=== PATIENT | male | born 1945 | race Caucasian/White ===

== ENCOUNTER 2024-10-08 11:20 | Emergency (ER) | payer MEDICARE, SELFPAY ==
--- NOTE | ~2024-10-08 | XR_ITS ---
EXAMINATION: XR chest 2V DATE: 10/08/2024 11:48 INDICATION: Cough and shortness of breath TECHNIQUE: PA and lateral views of the chest were obtained. COMPARISON: None FINDINGS: The lungs are clear with no focal airspace opacities, pulmonary edema, pleural effusion or pneumothor ax. The cardiomediastinal silhouette is normal. Mild thoracic spondylosis with chronic appearing mini mal anterior wedging at a few mid and lower thoracic vertebral bodies. IMPRESSION: 1. No acute cardiopulmonary disease. Reviewed, dictated and finalized at location A. N GATHERER
--- NOTE | 2024-10-08 11:23 | ED.URI ---
HPI - URI/Sore Throat General Chief Complaint: Upper Respiratory Infection Stated Complaint: Chest congestion Time Seen by Provider: 10/08/24 11:23 Source: patient Mode of arrival: ambulatory Limitations: no limitations History of Present Illness HPI Narrative: Alyssa is a 78-year-old male patient presenting to the clinic today with complaints of chest congestion, shortness breath, nonproductive cough x6 days. He states that he has had a low-grade temperature of 99.6?. Denies any chest pain but feels little heavy in the chest. MD elicited complaint: cough and other (Chest congestion) Related Data Home Medications ?Medication ?Instructions ?Recorded ?Confirmed ?Last Taken ?Type allopurinol 300 mg tablet 300 mg PO DAILY 10/08/24 10/08/24 Unknown History amlodipine 5 mg-benazepril 10 mg 1 cap PO DAILY 10/08/24 10/08/24 Unknown History capsule calcitriol 0.25 mcg capsule 0.25 mcg PO DAILY 10/08/24 10/08/24 Unknown History levothyroxine 150 mcg tablet 150 mcg PO DAILY 10/08/24 10/08/24 Unknown History (Synthroid) Allergies Allergy/AdvReac Type Severity Reaction Status Date / Time No Known Allergies Allergy Verified 10/08/24 11:42 Review of Systems Review of Systems: Pertinent positives per HPI. Patient denies any fever, chills, rash, headache, visual changes, dizziness, chest pain, palpitations, nausea, vomiting, diarrhea, constipation, abdominal pain, or any urinary issues. PMFSH Comments At the time of my signature, I reviewed and agree with the nursing past medical, surgical, social, and family history. There is no relevant family history pertinent to the patient complaint. Exam Narrative: General: Well-developed, well nourished, in no apparent distress Head: Normocephalic, atraumatic Eyes: Pupils equally round and reactive to light bilaterally, EOM intact, sclera and conjunctive clear, no discharge, lids normal Ears: TMs intact and clear, ear canals clear, no drainage, grossly hearing normal. Nose: Nares patent, clear nasal discharge, no inflammation, no sinus tenderness. Mouth: Oral pharynx without lesions or masses, good dentition, MMM. Postnasal drip Neck: Supple, trachea midline, no enlargement of anterior or posterior cervical nodes, no thyroid masses or goiter palpable. Cardio: Regular rate and rhythm, s1 and s2 normal, no murmur appreciated. Resp: Expiratory rhonchi throughout lung colon, no rales, wheezing or rubs Course Course Emergency Course: Portions of this record may have been created with voice recognition software. Level of Care: Express Care Visit Vital Signs Vital signs: Vital signs reviewed MDM - URI/Sore Throat MDM Narrative Medical decision making narrative: At the time of visit patient is resting comfortably on the exam table. Patient appears to be nontoxic. Diagnostics: Chest x-ray was performed and is negative for any acute cardiopulmonary process. Plan: I suspect patient has bronchitis. Prescription for prednisone, albuterol inhaler, and azithromycin was sent to the pharmacy. Supportive measures were discussed with the patient and they voiced understanding discharge instructions and agrees to treatment plan. Return precautions reviewed Differential Diagnosis Differential diagnosis: Likely upper respiratory infection, otitis media, sinusitis, viral infection, bronchitis, influenza, pharyngitis and other (COVID) Imaging Data Radiologist's impression: ITS Impressions Chest X-Ray 10/08/24 12:00 IMPRESSION: 1. No acute cardiopulmonary disease. Discharge Plan Discharge Clinical Impression: Bronchitis Patient Disposition: Home, Self-Care Condition: Stable Instructions: Antibiotic Form, Acute Bronchitis (ED) Additional Instructions: Chest x-rays negative for any sign of pneumonia. Take prescription medications only as prescribed-albuterol inhaler, prednisone, and azithromycin Increase fluids and stay well hydrated Tylenol/motrin for pain/fever Flonase and OTC antihistamines as directed Vicks vapor rub to open sinuses Sinus rinses for congestion Cepacol spray, cough drops, throat lozenges, warm tea with honey/lemon, gargle salt water to soothe throat BRAT diet for diarrhea Clear liquids x 24 hours then advance as tolerated for nausea/vomiting Go to the ED if you develop a worsening in your condition- high fever not controlled by Tylenol or Motrin, dehydration, weakness, lethargy, shortness of breath, or chest pain. Follow up with your PCP in 3-5 days if symptoms persist. Patient Language: Bulgarian Prescriptions: New azithromycin 250 mg tablet See Rx Instructions .ROUTE .COMPLEX Qty: 6 0RF Rx Instructions: For 250 mg dose pack: take 500 mg today (day 1), then 250 mg for 4 days (days 2-5) prednisone 20 mg tablet 40 mg PO DAILY 5 Days Qty: 10 0RF albuterol sulfate 90 mcg/actuation HFA aerosol inhaler 2 puff inhalation Q4-6H PRN (Reason: shortness of breath or wheezing) 30 Days Qty: 8.5 0RF No Action allopurinol 300 mg tablet 300 mg PO DAILY amlodipine-benazepril 5-10 mg capsule 1 cap PO DAILY calcitriol 0.25 mcg capsule 0.25 mcg PO DAILY levothyroxine [Synthroid] 150 mcg tablet 150 mcg PO DAILY Follow-up/Referrals: UNKNOWN,DOCTOR [Non-Staff] - Time of Disposition: 12:04 Quality NIHSS Nursing Documentation ED NIHSS nursing documentation: reviewed/agree
[2024-10-08 11:36] VITALS: BP 136/68; PULSE 84; RESP 16; TEMP 36.6; O2SAT 96
--- OUTSIDE RECORDS SUMMARY | 2024-10-15 06:36 | XMS_ITS | Continuity of Care Document ---
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 Name Role Phone Bennie Jackson Primary Care Physician Encounter [facility] Financial Number [id number] Date(s): 02/02/23 - 02/02/23 [facility] [address] [facility] [address] [place], [place] [id number] Discharge Disposition: Home or Self Care Allergies, Adverse Reactions, Alerts Substance Reaction Severity Status Adhesive Tape Blister, NOS Mild Active Assessment and Plan Future Appointments Appointment Date:12/28/2023 11:00:00 AM Scheduled Provider:Bennie Jackson MD [facility] Appointment Type:CIMR CPE Complete Physical Exam Immunizations Given and Recorded Vaccine Date Status Refusal Reason SARS-CoV-2 (COVID-19) mRNA BNT-162b2 vax 07/14/21 Recorded SARS-CoV-2 (COVID-19) mRNA BNT-162b2 vax 12/30/20 Recorded SARS-CoV-2 (COVID-19) mRNA BNT-162b2 vax 12/02/20 Recorded influenza virus vaccine, inactivated 07/08/21 Estuardo rded influenza virus vaccine, inactivated 07/08/20 Estuardo rded influenza virus vaccine, inactivated 06/13/19 Estuardo rded influenza virus vaccine, inactivated 06/19/18 Estuardo rded influenza virus vaccine, inactivated 08/06/15 Estuardo rded influenza virus vaccine, inactivated 08/29/13 Estuardo rded zoster vaccine, inactivated 09/29/19 Recorded Tetanus, Diphtheria, acel Pertussis Tdap 06/19/18 Recorded pneumococcal 13-valent vaccine 1 04/11/16 Given pneumococcal 13-valent vaccine 10/08/15 Recorded pneumococcal 23-valent vaccine 08/29/13 Recorded pneumococcal 23-valent vaccine 08/06/13 Recorded 1Result Comment: Note: amount administered:0.5 mL administered units:0.5 mL substance lot:[id number] date/time:[id number] 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 id: Medications allopurinol 300 mg oral tablet 1 tablet(s), Oral, daily, 90 tablet(s), 0, Route to Pharmacy Electronically, [id number], NCP_[id number], 180, cm, 06/21/2022 0819, Height, 87, kg, 06/21/2022 1015, Weight Start Date: 12/25/22 Status: Ordered amLODIPine-benazepril 5 mg-10 mg oral capsule 1 capsule(s), Oral, daily, 90 capsule(s), 1, 90, Route to Pharmacy Electronically, [facility], NCPDP_[id number], 180, cm, 06/21/2022 0819, Height, 87, kg, 06/21/2022 1015, Weight Start Date: 10/23/22 Status: Ordered baclofen 10 mg oral tablet 10 mg, 1 tablet(s), Oral, bid, PRN, 20 tablet(s), 0, 0, muscle spasm, Route to Pharmacy Electronically, [facility], [id number] Start Date: 11/05/20 Stop Date: 11/15/20 Status: Ordered calcitriol 0.25 mcg oral capsule See Instructions, # 180 capsule(s), Refill #: 3 Total Refills: 3, TAKE 1 CAPSULE TWICE DAILY, [facility] Start Date: 04/26/20 Status: Ordered dorzolamide-timolol ophthalmic 1 drop, Both eyes, daily, 0 Start Date: 01/13/19 Status: Ordered Flonase Nasal [place] 1 spray(s), Nasal, daily, PRN, 1 spray(s), [place], 0, allergy symptoms Start Date: 02/25/18 Status: Ordered levothyroxine 150 mcg (0.15 mg) oral tablet 150 mcg, 1 tablet(s), Oral, daily before breakfast, 90 tablet(s), Tablet(s), 1, 1, Route to Pharmacy Electronically, [facility], [id number] Start Date: 09/08/19 Stop Date: 03/06/20 Status: Ordered meloxicam 15 mg oral tablet 15 mg, 1 tablet(s), Oral, daily, 30 tablet(s), Tablet(s), 5, 5, Route to Pharmacy Electronically, [facility], [id number], 180, cm, 12/26/2022 1009, Height, 83, kg, 1009, Weight Start Date: 12/26/22 Status: Ordered mometasone 0.1% topical lotion 1 Applic, Topical, daily, 60 mL, Lotion, 0, 0, Route to Pharmacy Electronically, [facility], [id number], 180, cm, 12/26/2022 1009, Height, 83, kg, 12/26/2022 1009, Weight Start Date: 02/02/23 Status: Ordered Multivitamin oral tablet 1 tablet(s), Oral, daily, 30 tablet(s), Tablet(s), 0 Start Date: 12/20/16 Status: Ordered OsCal 1 tablet(s), Oral, bid with meals, 60 tablet(s), Tablet(s), 0 Start Date: 04/29/19 Status: Ordered sildenafil 100 mg oral tablet 100 mg, 1 tablet(s), Oral, daily, PRN, 30 tablet(s), Tablet(s), 1, 1, as needed for sexual actvity,Route to Pharmacy Electronically, [facility], [id number] Start Date: 11/11/19 Stop Date: 05/09/20 Status: Ordered Problem List Condition Confirmation Course Effective Dates Status Health Status Informant Pain in left ankle and joints of left foot M25.572 Confirmed Active Arthritis M19.90 Confirmed Active Inguinal hernia, bilateral 1 Confirmed Active Dupuytren's contracture Confirmed Active Essential hypertension I10 Confirmed Active Pain in left foot M79.672 Confirmed Active Gastroesophageal reflux disease without esophagitis K21.9 Confirmed Active History of positive PPD Confirmed Active History of gout Confirmed Active History of thyroid cancer Confirmed Active Hypocalcemia Confirmed Active Hypoparathyroidism, unspecified hypoparathyroidism type E20.9 Confirmed Active Macular hole Confirmed Active Pain of left calf M79.662 Confirmed Active Prostate cancer screening Z12.5 Confirmed Active Annual physical exam Z00.00 Confirmed Active Pernicious anemia D51.0 Confirmed Active Peripheral polyneuropathy G62.9 Confirmed Active Postoperative hypothyroidism Confirmed Active Psoriasis L40.9 2 Confirmed Active Pure hypercholesterolemia E78.00 Confirmed Active Right inguinal hernia K40.90 Confirmed Active Seasonal allergies Confirmed Active Skin lesion L98.9 Confirmed Active Tinea corporis Confirmed Active Tobacco abuse, 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 Substance Abuse Never drug user Smoking Status Former smoker;Never; Tobacco Cessation Counseling Requested N/A; Stopped at age: 44; entered on: 12/26/22 Sex Note * Event Display: ROI_Correspondence * Event Display: Patient Provided Clipboard Authored Date: [id number] Annual Wellness Visit Annual Wellness VisitOriginating Source: PATIENTOriginating Author: DEREK SAUCEDOClaveboard Submission Date: November 02, 2020 9:01:56 AM -06:00 DEREK SAUCEDO : 1945 Sex: Male MRN(s): [id number] Annual Wellness Visit Question Response Have you fallen in the last 3 months? No Have you ever experienced dizziness or vertigo? No Have you ever wet or soiled yourself on the way to the bathroom? No Have throw rugs been removed or fastened down? Yes Are non-slip mats in all bathtubs and showers? Yes Do all stairways have a railing or banister? Yes Are sidewalks/outdoor steps AND doorways, halls, and indoor stairs clear of tools, toys, and other articles? Yes Are all electrical cords in working order, easily seen, and not run under rugs/carpets or wrapped around nails? Yes Are emergency numbers kept by the phone, fridge, or wallet and regularly updated? Yes Are all household members aware of the dangers of smoking, especially in bed? Yes Are working smoke alarm(s) available for use? Yes Are working fire extinguishers available for use? Yes Do all household members know how to use them? Yes If you have firearms, are firearms stored unloaded and securely locked? Yes Are there hazards in your house that might hurt you? No Are you worried you might fall? No Do you use a cane or walker? No Do you need someone to help you get up in the morning? No Because of any health problems, do you need the help of another person with your personal care needs such as eating, bathing, dressing, or getting around the house? No Do you have trouble consistently taking or remembering to take all of your medications as prescribed? I always take them as prescribed Can you get to places out of walking distance without help? (For example, can you travel alone on buses or taxis, or drive your own car?) Yes Can you go shopping for groceries or clothes without someone's help? Yes Can you prepare your own meals? Yes Can you do your housework without help? Yes Can you handle your own money without help? Yes Can you keep track of your own medications without help? Yes How have things been going for you during the past four weeks? Very well; could hardly be better During the past four weeks, how would you rate your health in general? Very Good During the past four weeks, was someone available to help you if you needed and wanted help? Yes, as much as I wanted During the past four weeks, has your physical and emotional health limited your social activities with family friends, neighbors, or groups? Not at all In the past 4 weeks, have you been experiencing any sexual issues you would like to discuss? Never In the past 4 weeks, have you had any any trouble chewing, swallowing, or a poor appetite? Never Can you use the telephone without assistance? Yes How confident are you that you can control and manage most of your health problems? Very confident Are you having difficulties driving your car? No Do you always fasten your seat belt when you are in a car? Always Over the past 2 weeks, how often have you felt down, depressed or hopeless? Not at all Over the past 2 weeks, how often have you had little interest or pleasure in doing things? Not at all * Event Display: ROI_Correspondence Authored Date: * Event Display: ROI_Correspondence Authored Date: * Event Display: Patient Provided Clipboard Authored Date: Annual Wellness Visit Annual Wellness VisitOriginating Source: PATIENTOriginating Author: DEREK SAUCEDOClipboard Submission Date: October 28, 2019 10:25:35 AM DEREK MANRIQUEZ : 1945 Sex: Male MRN(s): [id number] Annual Wellness Visit Question Response Have you fallen in the last 3 months? No Have you ever experienced dizziness or vertigo? No Have you ever wet or soiled yourself on the way to the bathroom? Have throw rugs been removed or fastened down? Yes Are non-slip mats in all bathtubs and showers? Yes Do all stairways have a railing or banister? Yes Are sidewalks/outdoor steps AND doorways, halls, and indoor stairs clear of tools, toys, and other articles? Yes Are all electrical cords in working order, easily seen, and not run under rugs/carpets or wrapped around nails? Yes Are emergency numbers kept by the phone, fridge, or wallet and regularly updated? Yes Are all household members aware of the dangers of smoking, especially in bed? Yes Are working smoke alarm(s) available for use? Yes Are working fire extinguishers available for use? Yes Do all household members know how to use them? Yes If you have firearms, are firearms stored unloaded and securely locked? Yes Are there hazards in your house that might hurt you? No Are you worried you might fall? No Do you use a cane or walker? No Do you need someone to help you get up in the morning? No Because of any health problems, do you need the help of another person with your personal care needs such as eating, bathing, dressing, or getting around the house? No Do you have trouble consistently taking or remembering to take all of your medications as prescribed? I always take them as prescribed Can you get to places out of walking distance without help? (For example, can you travel alone on buses or taxis, or drive your own car?) Yes Can you go shopping for groceries or clothes without someone's help? Yes Can you prepare your own meals? Yes Can you do your housework without help? Yes Can you handle your own money without help? Yes Can you keep track of your own medications without help? Yes How have things been going for you during the past four weeks? Very well During the past four weeks, how would you rate your health in general? Excellent During the past four weeks, was someone available to help you if you needed and wanted help? Yes, as much as I wanted During the past four weeks, has your physical and emotional health limited your social activities with family friends, neighbors, or groups? Not at all In the past 4 weeks, have you been experiencing any sexual issues you would like to discuss? Never In the past 4 weeks, have you had any any trouble chewing, swallowing, or a poor appetite? Never Can you use the telephone without assistance? Yes How confident are you that you can control and manage most of your health problems? Very confident Are you having difficulties driving your car? No Do you always fasten your seat belt when you are in a car? Always Over the past 2 weeks, how often have you felt down, depressed or hopeless? Not at all Over the past 2 weeks, how often have you had little interest or pleasure in doing things? Not at all * Event Display: Patient Provided Clipboard Authored Date: [id number] Annual Wellness Visit Annual Wellness VisitOriginating Source: PATIENTOriginating Author: DEREK SAUCEDOClipboard Submission Date: April 25, 2019 11:21:51 AM CDDEREK QUINTANILLA : 1945 Sex: Male MRN(s): [id number] Annual Wellness Visit Question Response Have you fallen in the last 3 months? No Have you ever experienced dizziness or vertigo? No Have you ever wet or soiled yourself on the way to the bathroom? No Have throw rugs been removed or fastened down? Yes Are non-slip mats in all bathtubs and showers? Yes Do all stairways have a railing or banister? Yes Are sidewalks/outdoor steps AND doorways, halls, and indoor stairs clear of tools, toys, and other articles? Yes Are all electrical cords in working order, easily seen, and not run under rugs/carpets or wrapped around nails? Yes Are emergency numbers kept by the phone, fridge, or wallet and regularly updated? Yes Are all household members aware of the dangers of smoking, especially in bed? Yes Are working smoke alarm(s) available for use? Yes Are working fire extinguishers available for use? Yes Do all household members know how to use them? Yes If you have firearms, are firearms stored unloaded and securely locked? Yes Are there hazards in your house that might hurt you? No Are you worried you might fall? No Do you use a cane or walker? No Do you need someone to help you get up in the morning? No Because of any health problems, do you need the help of another person with your personal care needs such as eating, bathing, dressing, or getting around the house? No Do you have trouble consistently taking or remembering to take all of your medications as prescribed? I always take them as prescribed Can you get to places out of walking distance without help? (For example, can you travel alone on buses or taxis, or drive your own car?) Yes Can you go shopping for groceries or clothes without someone's help? Yes Can you prepare your own meals? Yes Can you do your housework without help? Yes Can you handle your own money without help? Yes Can you keep track of your own medications without help? Yes How have things been going for you during the past four weeks? Pretty well During the past four weeks, how would you rate your health in general? Excellent During the past four weeks, was someone available to help you if you needed and wanted help? Yes, as much as I wanted During the past four weeks, has your physical and emotional health limited your social activities with family friends, neighbors, or groups? Not at all In the past 4 weeks, have you been experiencing any sexual issues you would like to discuss? Never In the past 4 weeks, have you had any any trouble chewing, swallowing, or a poor appetite? Never Can you use the telephone without assistance? Yes How confident are you that you can control and manage most of your health problems? Very confident Are you having difficulties driving your car? No Do you always fasten your seat belt when you are in a car? Always Over the past 2 weeks, how often have you felt down, depressed or hopeless? Not at all Over the past 2 weeks, how often have you had little interest or pleasure in doing things? Not at all * HPF, Image_Migration: VERIFY, PERFORM Event Display: ROI_Correspondence Authored Date: Patient Care team information Care Team Personnel Name: Bennie Jackson MD Position: Physician - Internal Medicine Member Role: Primary Care Physician Address: Address: [address] [place] [address] Name: Keith Barros POPULATION HEALTH COORD Position: Population Health Coordinator Member Role: Population Health Coordinator Name: Mariela Veloz Seed Buyer/English As A Second Language Instructor Position: Population Health Coordinator Member Role: Population Health Coordinator Name: Ambreen Najera ANP Position: AMB PRODUCTION SUPPORT ENGINEER/PA Member Role: Nurse Practitioner Address: Address: [facility] [address] [place] [address] Name: Osorio Wilson ANP Position: AMB PRODUCTION SUPPORT ENGINEER/PA Member Role: Nurse Practitioner Address: Address: [address] [place] [address] Care Team Related Persons Name: MARILU SAUCEDO Address: home [address] [place] [phone] [facility]
--- OUTSIDE RECORDS SUMMARY | 2024-10-15 06:36 | XMS_ITS | Patient Health Record ---
Author Organization [facility] Address 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 Role Phone Renetta REGALADO, Bennie Primary Care Provider Unavail able Yehuda Benítez Unavailable [phone] Reason For Referral No Information Problems Problem Type SNOMED Code ICD Code Onset Dates Problem Status W/U Status Risk Notes Problem [id number] Personal history of colonic polyps (Z86.010) Active confirmed Plan Of Treatment No Information Insurance Providers Payer Name Payer Address Payer Phone Subscriber Number Group Number Insured Name Patient Relationship to Insured Coverage Start Date Coverage End Date Medicare E2 [address] [address] [place] [address] [id number] Spenser Shah Self - patient is the insured [employer] Medicare Supplement [address] [place] [phone] [id number] Plan G Spenser Shah Self - patient is the insured
--- OUTSIDE RECORDS SUMMARY | 2024-10-15 06:36 | XMS_ITS | Continuity of Care Document ---
Author Organization [facility] [address] Address [address] [facility] [address], [place] [id number] Care Team Providers Care Personal Security Specialist Name Role Phone Bennie Jackson Primary Care Physician Encounter [facility] Financial Number [id number] Date(s): 12/28/23 - 12/28/23 [facility] [address] [facility] [address], [place] [id number] Encounter Diagnosis Essential hypertension I10(Discharge Diagnosis) - 12/28/23 History of gout(Discharge Diagnosis) - 12/28/23 History of thyroid cancer(Discharge Diagnosis) - 12/28/23 Hypoparathyroidism, unspecified hypoparathyroidism type E20.9(Discharge Diagnosis) - 12/28/23 Pernicious anemia D51.0(Discharge Diagnosis) - 12/28/23 Prostate cancer screening Z12.5(Discharge Diagnosis) - 12/28/23 Pure hypercholesterolemia E78.00(Discharge Diagnosis) - 12/28/23 Tobacco abuse, 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(Discharge Diagnosis) - 12/28/23 Annual physical exam Z00.00(Discharge Diagnosis) - 12/28/23 Discharge Disposition: Home or Self Care Attending Physician: Bennie Jackson MD Allergies, Adverse Reactions, Alerts Substance Reaction Severity Status Adhesive Tape Blister, NOS Mild Active Assessment and Plan Future Appointments Appointment Date:12/29/2024 11:00:00 AM Scheduled Provider:Bennie Jackson MD Location:[facility] Appointment Type:CIMR CPE Complete Physical Exam [...] vaccine, inactivated 08/29/13 Estuardo rded zoster vaccine, recombinant 09/29/19 Recorded Tetanus, Diphtheria, acel Pertussis Tdap 06/19/18 Recorded pneumococcal 13-valent vaccine 1 04/11/16 Given pneumococcal 13-valent vaccine 10/08/15 Recorded pneumococcal 23-valent vaccine 08/29/13 Recorded pneumococcal 23-valent vaccine 08/06/13 Recorded 1Result Comment: Note: amount administered:0.5 mL administered units:0.5 mL substance lot:[id number] date/time:[id number] fly setter:GameOn refusal id: Medications allopurinol 300 mg oral tablet 1 tablet(s), Oral, daily, 90 tablet(s), 0, 0, Route to Pharmacy Electronically, [facility], [id number], 180, cm, 12/26/22 10:09:00 CDT, Height, 83, kg, 12/26/22 10:09:00 CDT, Weight Start Date: 12/24/23 Status: Ordered amLODIPine-benazepril 5 mg-10 mg oral capsule 1 capsule(s), Oral, daily, 90 capsule(s), 1, 1, Route to Pharmacy Electronically, [facility], [id number], 180, cm, 12/26/22 10:09:00 CDT, Height, 83, kg, 12/26/22 10:09:00 CDT, Weight Start Date: 10/30/23 Stop Date: 04/27/24 Status: Ordered baclofen 10 mg oral tablet 10 mg, 1 tablet(s), Oral, bid, PRN, 20 tablet(s), 0, 0, muscle spasm, Route to Pharmacy Electronically, [facility], [id number] Start Date: 11/05/20 Stop Date: 11/15/20 Status: Ordered calcitriol 0.25 mcg oral capsule See Instructions, # 180 capsule(s), Refill #: 3 Total Refills: 3, TAKE 1 CAPSULE TWICE DAILY, [facility] Start Date: 04/26/20 Status: Ordered Citracal 250 mg + D 1 tablet(s), Oral, tid with meals, 90 tablet(s), Tablet(s), 0 Start Date: 12/28/23 Status: Ordered clotrimazole 1% topical cream See Instructions, 15 gm, 1, APPLY CREAM TOPICALLY TWICE DAILY, 180, cm, 12/26/22 10:09:00 CDT, Height, 83, kg, 12/26/22 10:09:00 CDT, Weight Start Date: 10/30/23 Status: Ordered dorzolamide-timolol ophthalmic 1 drop, Both eyes, daily, 0 Start Date: 01/13/19 Status: Ordered Flonase Nasal [place] 1 spray(s), Nasal, daily, PRN, 1 spray(s), [place], 0, allergy symptoms Start Date: 02/25/18 Status: Ordered levothyroxine 150 mcg (0.15 mg) oral tablet 150 mcg, 1 tablet(s), Oral, daily before breakfast, 90 tablet(s), Tablet(s), 0, 0, Route to Pharmacy Electronically, [facility], [id number], 180, cm, 12/26/22 10:09:00 CDT, Height, 83, kg, 12/26/22 10:09:00 CDT, Weight Start Date: 12/03/23 Stop Date: 03/02/24 Status: Ordered meloxicam 15 mg oral tablet 15 mg, 1 tablet(s), Oral, daily, 30 tablet(s), Tablet(s), 5, 5, Route to Pharmacy Electronically, [facility], [id number], 180, cm, 12/26/2022 1009, Height, 83, kg, 1009, Weight Start Date: 12/26/22 Status: Ordered Multivitamin oral tablet 1 tablet(s), Oral, daily, 30 tablet(s), Tablet(s), 0 Start Date: 12/20/16 Status: Ordered sildenafil 100 mg oral tablet 100 mg, 1 tablet(s), Oral, daily, PRN, 30 tablet(s), Tablet(s), 1, 1, as needed for sexual actvity,Route to Pharmacy Electronically, [facility], [id number] Start Date: 11/11/19 Stop Date: 05/09/20 Status: Ordered Problem List Condition Confirmation Course Effective Dates Status Health Status Informant Pain in left ankle and joints of left foot M25.572 Confirmed Active Arthritis M19.90 Confirmed Active Inguinal hernia, bilateral 1 Confirmed Active Dupuytren's contracture Confirmed Active Essential hypertension I10 Confirmed Active Pain in left foot M79.672 Confirmed Active History of positive PPD Confirmed [...] 1x2 2rt sided disc placed after thyroidectomy Vital Signs Most recent to oldest [Reference Range]: 1 Temperature Temporal Artery [35.8-38 Deg C] 36.7 DegC (12/28/23 11:16 AM) Peripheral Pulse Rate [60-100 bpm] 75 bp m (12/28/23 11:16 AM) Blood Pressure [89-139/60-90 mm Hg] 136/ 84mm Hg (12/28/23 11:16 AM) Height 177.50 cm (12/28/23 11:16 AM) Weight 85.7 kg (12/28/23 11:16 AM) Social History Social History Type Response Alcohol Current every day al cohol user, Daily, 2 drinks/episode average. Substance Abuse Never drug user Smoking Status Former smoker;Never; Tobacco Cessation Counseling Requested N/A; Stopped at age: 44; entered on: 12/28/23 Sex Note * Event Display: Consent/Registration Forms Authored Date: * Event Display: Consent/Registration Forms Authored Date: * Event Display: Privacy Practice Authored Date: * Event Display: ROI_Correspondence * Event Display: Patient Provided Clipboard Authored Date: [id number] Annual Wellness Visit Annual Wellness VisitOriginating Source: PATIENTOriginating Author: DEREK SAUCEDOClipboard Submission Date: November 02, 2020 9:01:56 AM -06:00 DEREK SAUCEDO : 1945 Sex: Male MRN(s): [id number] Annual Wellness Visit Question Response Have you [...] Date: * Event Display: ROI_Correspondence Authored Date: [id number] * Event Display: Patient Provided Clipboard Authored Date: [id number] Annual Wellness Visit Annual Wellness VisitOriginating Source: PATIENTOriginating Author: DEREK SAUCEDOTinboard Submission Date: October 28, 2019 10:25:35 AM DEREK MANRIQUEZ : 1945 Sex: Male MRN(s): [id number] Annual Wellness Visit Question Response Have you [...] Event Display: Patient Provided Clipboard Authored Date: [id number] Annual Wellness Visit Annual Wellness VisitOriginating Source: PATIENTOriginating Author: DEREK SAUCEDOClipboard Submission Date: April 25, 2019 11:21:51 AM CDT DEREK SAUCEDO : 1945 Sex: Male MRN(s): [id number] Annual Wellness Visit Question Response Have you [...] pleasure in doing things? Not at all Internal medicine Outpatient Note * Bennie Jackson MD: PERFORM, MODIFY Event Display: Internal Medicine Office/Clinic Note Authored Date: Patient Information Name:DEREK SAUCEDO Address: [address] [place] [phone] Sex:Male Date of :1945 Emergency Contact:MARILU SAUCEDO Location:[facility] [address] Registration Date and Time:12/28/2023 10:38 CDT Primary Care Physician: Bennie Jackson MD, Attending Physician: Bennie Jackson MD, Chief Complaint Annual Physical Exam History of Present Illness The patient is a 78-year-old male who presents for evaluation of multiple medical concerns. ?? The patient gave consent for the use of ALONDRA. ?? He has not had any new surgical procedures of any kind over the last few months. He saw Dr. Vo10 days ago and they checked his blood pressure and it is in the normal range. When he goes to the dentist, they also checked it and it is in the normal range. 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 He is out and about doing things all the time. He denies any chest pain with exertion. He is not trying to be careful with his diet. ?? He has not had any flare-ups of gout. ?? His scalp psoriasis subsides and then came back. He sees Dr. Rodriguez twice a year. He takes baclofen as needed. ?? He has some issues with his bilateral big toenails. He is not sure if it is fungus or if it is isolated. Half of the nail is detached from the skin underneath. ?His vision is relatively stable. His pressure is doing well. He denies any abdominal pain. He is moving his bowels normally. He denies any trouble passing urine. Vitals and Measurements Vital Signs Height: 177.5 cm Height Inches Conversion: 69.9 Weight: 85.7 kg Weight in Pounds (kg conversion): 188.5 Body Surface Area: 2.0556 m2 Body Mass Index: 27.2 kg/m2 Temperature Temporal Artery: 36.7 DegC Systolic Blood Pressure: 136 mm Hg Diastolic Blood Pressure: 84 mm Hg Peripheral Pulse Rate: 75 bpm Oxygen Saturation: 96 % HRA Pain Present: No Physical Exam GENERAL APPEARANCE: well developed and well nourished, white male, in no acute distress. EYES: + red reflex bilaterally, pupils, equal, round, reactive to light and accommodation (PERRLA),sclera clear. HEENT: Head - normocephalic/atraumatic, EARS:, tympanic membranes normal, external auditory canals clear, ORAL CAVITY:?? unremarkable NECK/THYROID: no carotid bruit, no jugular venous distention (JVD), no lymphadenopathy, no thyromegaly. CARDIOVASCULAR: regular rate and rhythm, normal S1S2, no murmurs, click or rubs. CHEST: symmetrical. RESPIRATORY: normal breath sounds, no wheezes, rhonchi, rales. GASTROINTESTINAL: soft, non-tender/non-distended, bowel sounds present. NEUROLOGIC EXAM: alert and oriented, DTR's 2+ bilaterally and symmetric, no motor/sensory deficit. SKIN: plaques on the posterior neck/scalp, erythema of the infragluteal fold. EXTREMITIES: no clubbing, cyanosis, or edema. PERIPHERAL PULSES: normal (2+) bilaterally. LYMPH NODES: No palpable adenopathy Assessment/Plan 1.??Essential hypertension I10 BP appears to be well controlled. Continue with current treatment. 2.??History of gout The patient is doing well with current daily prophylaxis. No recent flares. 3.??History of thyroid cancer The patient has orders for TFTs to be updated from his clinical biostatistics director. He remains on daily suppressive therapy. 4.??Hypoparathyroidism, unspecified hypoparathyroidism type E20.9 I will update calcium levels and follow-up. 5.??Pernicious anemia D51.0 I will update B12 and CBC levels. 6.??Prostate cancer screening Z12.5 ??I will obtain updated PSA. 7.??Pure hypercholesterolemia E78.00 I will update labs fasting. 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 9.??Annual physical exam Z00.00 History is reviewed and updated. This includes medications, allergies, medical history, social history, family history, social history. Time is spent reviewing and discussing diet, and exercise habits. Colon and prostate screenings are reviewed. Skin protection and screening are reviewed. Vaccinations are reviewed. Appropriate labs and imaging are ordered. ?? Encounter Orders ?CBC with Differential ?Comprehensive Metabolic Profile ?Lipid Panel ?PSA Total ?Urinalysis w/ Reflex to Microscopic (no culture) ?Vitamin D, 25-Hydroxy, Total ?? Documentation completed by ALONDRA correctional treatment specialist and provider input.??By signing this note the provider attests to the data being reviewed and accurate. This provider has requested and received patient consent to use ALONDRA to interpret their clinical note during this patient encounter. ?? QDS: Pedro Alvarez. Pasted by Trudy Harrell. Future Order Details Vitamin B12 Level, 12/28/23, Blood, ROUTINE, Routine, Order for Future Visit, Nurse Collect, Print Label, Essential hypertension I10 History of gout History of thyroid cancer Hypoparathyroidism, unspecified hypoparathyroidism type E20.9 Pernicious anemia D51.0 ... Follow Up The patient will follow up in 1 year. Review of Systems General Weight Change >10lbs: No Fever: No Fatigue: No Difficulty Sleeping: No Blood Transfusion: No Psych/Social Feeling blue/discouraged: No High anxiety/stress: No Loss of friends: No Feeling life has no purpose: No Feeling others are talking about you: No Feeling fear: No Hearing voices: No Marital or relationship problems: No trousseau consultant awakenings: No Head & Neck ROS Visual Changes (Not Glasses): No Dizziness: No Double vision: No Sinus problems: No Frequent persistent nosebleeds: No Ear pain: No Trouble hearing: No Ringing in Ears: No Hoarseness: No Persistent sore throat: No Mouth sores: No Swollen glands (Frequent): No Kidney/Bladder UTI: No Urinary Incontinence: No Urinary Hesitancy: No Frequent Urination: No Frequent urination at night: No Difficulty urinating: No Urinary Urgency: No Urinary Retention: No Blood in urine: No Respiratory/Lungs Stop breathing during sleep: No Shortness of Breath: No Coughing up blood: No Wheezing: No Cough.: No Sore Throat: No Snoring: No Daytime sleepiness: No Skeletal Gout: No Back Pain (Major): No Neck Pain (Major): No Weakness of arm or leg: No Joints Swelling/Stiffness: No Deformities of Back/Extremities: No Leg swelling: No Edema: No Heart/Vascular Chest discomfort/tightness: No Irregular rapid heart beat: No Smothering feeling at night: No Ankle swelling: No Light headed: No Fainting episodes: No Varicose Veins: No Leg Pain with Walking: No Color/Temperature Changes of Extremities: No Leg Swelling ROS: No Neuro Numbness or tingling: No Severe frequent headaches: No Abnormal coordination: No Trouble with speech: No Forgetfulness/confusion: No Stomach/Bowel Black/Bloody stools: No Nausea/Vomiting (Frequent): No Frequent heart burn/acid (GERD): No Abdominal pain.: No Diarrhea (Frequent): No Constipation.: No Difficulty swallowing: No Vomiting blood: No Skin & Hair Changes in hair/hair loss: No Major skin problems: No Wounds that will not heal: No Persistent rash: No Changes in moles: No Reproduction Blood in semen/sperm (men): No Inability to have an erection: No Inability to reach climax: No Infertility: No Painful intercourse: No Decreased sexual desire: No Sexually Transmitted Diseases: No Women Breast pain/lumps: No Pelvic Pain: No Vaginal discharge: No Vaginal dryness: No Frequent sweats/hot flashes: No Menstrual problems: No Menopause: No Problems: No Baby weighing 9lbs or more: No Problem List/Past Medical History Ongoing Annual physical exam Z00.00 Arthritis M19.90 Dupuytren's contracture Essential hypertension I10 History of gout History of positive PPD History of thyroid cancer Hypocalcemia Hypoparathyroidism, unspecified hypoparathyroidism type E20.9 Inguinal hernia, bilateral Macular hole Pain in left ankle and joints of left foot M25.572 Pain in left foot M79.672 Pain of left calf M79.662 Peripheral polyneuropathy G62.9 Pernicious anemia D51.0 Postoperative hypothyroidism Prostate cancer screening Z12.5 Psoriasis L40.9 Pure hypercholesterolemia E78.00 Right inguinal hernia K40.90 Seasonal allergies Skin lesion L98.9 Tinea corporis Tobacco abuse, 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 Unchanged amLODIPine-benazepril (amLODIPine-benazepril 5 mg-10 mg oral capsule) 1 capsule(s) By mouth Daily Duration: 90 day(s) Contact prescribing physician if questions or concerns ?? Unchanged baclofen (baclofen 10 mg oral tablet) 1 tablet(s) By mouth 2 times a day as needed for muscle spasm Duration: 10 day(s) Contact prescribing physician if questions or concerns ?? Unchanged calcitriol (calcitriol 0.25 mcg oral capsule) See instructions TAKE 1 CAPSULE TWICE DAILY Contact prescribing physician if questions or concerns ?? Unchanged calcium-vitamin D (Citracal 250 mg + D) 1 tablet(s) By mouth 3 times a day with meals Contact prescribing physician if questions or concerns ?? Unchanged clotrimazole topical (clotrimazole 1% topical cream) See instructions APPLY ??CREAM TOPICALLY TWICE DAILY Contact prescribing physician if questions or concerns ?? Unchanged dorzolamide-timolol ophthalmic 1 drop Both eyes Daily Contact prescribing physician if questions or concerns ?? Unchanged fluticasone nasal (Flonase Nasal [place]) 1 spray(s) Nasal Daily as needed for allergy symptoms Contact prescribing physician if questions or concerns ?? Unchanged levothyroxine (levothyroxine 150 mcg (0.15 mg) oral tablet) 1 tablet(s) By mouth Daily before breakfast Duration: 90 day(s) Contact prescribing physician if questions or concerns ?? Unchanged meloxicam (meloxicam 15 mg oral tablet) 1 tablet(s) By mouth Daily Contact prescribing physician if questions or concerns ?? Unchanged multivitamin (Multivitamin oral tablet) 1 tablet(s) By mouth Daily Contact prescribing physician if questions or concerns ?? Unchanged sildenafil (sildenafil 100 mg oral tablet) 1 tablet(s) By mouth Daily as needed for as needed for sexual actvity Duration: 90 day(s) Contact prescribing physician if questions or concerns ? What How Much When Comments Stop Taking calcium carbonate (OsCal) 1 tablet(s) By mouth 2 times a day with meals Immunizations Vaccine Date [id number] (COVID-19) mRNA BNT-162b2 vax 07/14/2021 Recorded influenza virus vaccine, inactivated 07/08/2021 Recorded SARS-CoV-2 (COVID-19) mRNA BNT-162b2 vax 12/30/2020 Recorded SARS-CoV-2 (COVID-19) mRNA BNT-162b2 vax 12/02/2020 Recorded influenza virus vaccine, inactivated 07/08/2020 Recorded zoster vaccine, recombinant 09/29/2019 Recorded influenza virus vaccine, inactivated 06/13/2019 Recorded Tetanus, Diphtheria, acel Pertussis Tdap 06/19/2018 Recorded influenza virus vaccine, inactivated 06/19/2018 Recorded pneumococcal 13-valent vaccine 04/11/2016 Given pneumococcal 13-valent vaccine 10/08/2015 Recorded influenza virus vaccine, inactivated 08/06/2015 Recorded pneumococcal 23-valent vaccine 08/29/2013 Recorded influenza virus vaccine, inactivated 08/29/2013 Recorded pneumococcal 23-valent vaccine 08/06/2013 Recorded Allergies Adhesive Tape??(Blister, NOS) Social History Smoking Status - 12/20/2016 Former smoker Alcohol Current every day alcohol user, Daily, 2 drinks/episode average., 12/28/2023 Substance Abuse Never drug user, 12/28/2023 Tobacco Former smoker, Smokeless Tobacco use: Never. N/A Cessation Counseling. Stopped age 44 Years., 12/28/2023 Family History ?Brother ?Negative ?Father ?Positive ?Emphysema... ?Father ?Positive ?Prostate cancer.. ?Father ?Positive ?Stroke ?Mother ?Positive ?Lung cancer ?Father ?Positive ?Hypertension ?Father ?Positive ?Suicidal ?Father ?Positive ?Diabetes mellitus type 2 ?Mother ?Positive ?Tobacco ? POC Results Event Name?? Event Result?? Date/Time?? Oxygen Saturation 96 % 12/28/23 11:16:00 ? Voice to Text Technology Disclaimer This note may contain text inserted via Dragon or other voice to text assistive technology and aircraft instrument repairer, variances may occur. 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 Annual physical exam Z00.00 Your Care Team Attending Physician - Bennie Jackson MD Primary Care Physician - Bennie Jackson MD Procedure History ???Colonoscopy???Endoscope???Thyroidectomy???Tonsillectomy with adenoidectomy???Vocal cord structure Discharge Vitals Vital Signs Height: 177.5 cm Height Inches Conversion: 69.9 Weight: 85.7 kg Weight in Pounds (kg conversion): 188.5 Body Surface Area: 2.0556 m2 Body Mass Index: 27.2 kg/m2 Temperature Temporal Artery: 36.7 DegC Systolic Blood Pressure: 136 mm Hg Diastolic Blood Pressure: 84 mm Hg Peripheral Pulse Rate: 75 bpm Oxygen Saturation: 96 % HRA Pain Present: No What to do next Scheduled Follow-Up Appointments Sunday 11:00 AM CDT ?? With: Bennie Jackson MD Where: [facility] [address] [phone] You Need to Complete the Following Vitamin B12 Level, 12/28/23, Blood, ROUTINE, Routine, Order for Future Visit, Nurse Collect, Print Label, Essential hypertension I10 History of gout History of thyroid cancer Hypoparathyroidism, unspecified hypoparathyroidism type E20.9 Pernicious anemia D51.0 ... Referral Information Referral Information ? No Results Found ? Medications What How Much When Instructions Unchanged allopurinol (allopurinol 300 mg oral tablet) 1 tablet(s) By mouth Daily Contact prescribing physician if questions or concerns ?? Unchanged amLODIPine-benazepril (amLODIPine-benazepril 5 mg-10 mg oral capsule) 1 capsule(s) By mouth Daily Duration: 90 day(s) Contact prescribing physician if questions or concerns ?? Unchanged baclofen (baclofen 10 mg oral tablet) 1 tablet(s) By mouth 2 times a day as needed for muscle spasm Duration: 10 day(s) Contact prescribing physician if questions or concerns ?? Unchanged calcitriol (calcitriol 0.25 mcg oral capsule) See instructions TAKE 1 CAPSULE TWICE DAILY Contact prescribing physician if questions or concerns ?? Unchanged calcium-vitamin D (Citracal 250 mg + D) 1 tablet(s) By mouth 3 times a day with meals Contact prescribing physician if questions or concerns ?? Unchanged clotrimazole topical (clotrimazole 1% topical cream) See instructions APPLY ??CREAM TOPICALLY TWICE DAILY Contact prescribing physician if questions or concerns ?? Unchanged dorzolamide-timolol ophthalmic 1 drop Both eyes Daily Contact prescribing physician if questions or concerns ?? Unchanged fluticasone nasal (Flonase Nasal [place]) 1 spray(s) Nasal Daily as needed for allergy symptoms Contact prescribing physician if questions or concerns ?? Unchanged levothyroxine (levothyroxine 150 mcg (0.15 mg) oral tablet) 1 tablet(s) By mouth Daily before breakfast Duration: 90 day(s) Contact prescribing physician if questions or concerns ?? Unchanged meloxicam (meloxicam 15 mg oral tablet) 1 tablet(s) By mouth Daily Contact prescribing physician if questions or concerns ?? Unchanged multivitamin (Multivitamin oral tablet) 1 tablet(s) By mouth Daily Contact prescribing physician if questions or concerns ?? Unchanged sildenafil (sildenafil 100 mg oral tablet) 1 tablet(s) By mouth Daily as needed for as needed for sexual actvity Duration: 90 day(s) Contact prescribing physician if questions or concerns ? What How Much When Comments Stop Taking calcium carbonate (OsCal) 1 tablet(s) By mouth 2 times a day with meals Medications and Immunizations Administered Medication Administrations ? No Results Found ? Allergies Adhesive Tape??(Blister, NOS) Problems Ongoing Annual physical exam Z00.00 Arthritis M19.90 Dupuytren's contracture Essential hypertension I10 History of gout History of positive PPD History of thyroid cancer Hypocalcemia Hypoparathyroidism, unspecified hypoparathyroidism type E20.9 Inguinal hernia, bilateral Macular hole Pain in left ankle and joints of left foot M25.572 Pain in left foot M79.672 Pain of left calf M79.662 Peripheral polyneuropathy G62.9 Pernicious anemia D51.0 Postoperative hypothyroidism Prostate cancer screening Z12.5 Psoriasis L40.9 Pure hypercholesterolemia E78.00 Right inguinal hernia K40.90 Seasonal allergies Skin lesion L98.9 Tinea corporis Tobacco abuse, 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 Act FAST and Check for these signs: FACE Does the face look uneven? ARM Does one arm drift down? SPEECH Does their speech sound strange? TIME Call at any sign of stroke Voice to Text Technology Disclaimer This note may contain text inserted via Dragon or other voice to text assistive technology and aircraft instrument repairer, variances may occur. Patient Care team information Care Team Personnel Name: Lawanda Go Erp Programmer Position: Population Health Coordinator Member Role: Population Health Coordinator Name: Bennie Jackson MD Position: Physician - Internal Medicine Member Role: Primary Care Physician Address: Address: [address] [place] [address] [place] Name: Keith Barros POPULATION HEALTH COORD Position: Population Health Coordinator Member Role: Population Health Coordinator Name: Mariela Veloz Conservation Or Heritage Architect/Sheet Manufacturing Supervisor Position: Population Health Coordinator Member Role: Population Health Coordinator Name: Ambreen Najera ANP Position: AMB [employer]SE HITCH DRIVER/[place] Member Role: Nurse Practitioner Address: Address: [facility] [address] [place] [address] [place] Name: Osorio Wilson ANP Position: AMB [employer] H[employer] DRIVER/[place] Member Role: Nurse Practitioner Address: Address: [address] [place] [address] [place] Name: Bennie Jackson MD Position: Physician - Internal Medicine Med Service: Home Restoration Service Cleaner Personal Security Specialist Role: Attending Physician Address: Address: [address] [place] [address] Care Team Related Persons Name: MARILU SAUCEDO Address: home [id number] [place] [phone] [facility]
== END 2024-10-08 12:09 | disposition home or self-care (01) ==
PROVIDERS: Emergency Provider Nurse Practitioner Family
DX: J40 Bronchitis, not specified as acute or chronic (principal)
CPT/HCPCS: 71046; 99213; G0463